=== PATIENT | male | born 1965 | race Caucasian/White ===

== ENCOUNTER 2016-05-26 11:25 | Observation (INO) ==
--- NOTE | 2016-05-26 11:48 | Emergency Department Note ---
Disposition Clinical Impression: URI (upper respiratory infection), Wheezing, Cellulitis of forearm, left, Abscess of muscle, Abscess of forearm, left, Left arm swelling, Elevated C- reactive protein (CRP) Disposition: Admitted As Inpatient Referrals: NO,PCP [Primary Care Provider] - Forms: ED Satisfaction Letter General Adult HPI - General Chief complaint: ED Extremity Injury, Upper Stated complaint: abscess Time Seen by Provider: 05/26/16 11:33 Source: patient Limitations: no limitations - History of Present Illness HPI Narrative: 50-year-old male reports emergency department with concerns for left arm swelling. He reports redness and pain. There is no history of trauma. The patient denies any recent laceration or injury. The patient has had no chest pain or coughing up blood. He has had a cough and general describes some wheezing. He is a nonsmoker and has no history of asthma. There is been no chest pain. No leg swelling or pain or syncope. He has no personal history of CAD, CHF, DVT, PE or cancer. The patient has had no sore throat or ear pain or runny nose. He reports he has had bronchitis in the past. No abdominal pain vomiting or diarrhea. No coldness blueness numbness or weakness of the arms or legs. Patient is not known to be diabetic. No other complaints or concerns. Pain Scale: 9 - Related Data Previous Rx's Medication Instructions Recorded Cetirizine HCl [Zyrtec] 10 mg PO DAILY #10 tablet 02/14/15 GuaiFENesin/Codeine [Robitussin 10 ml PO Q6HR PRN #120 liquid 02/14/15 w/Codeine] PredniSONE [Prednisone] 60 mg PO DAILY #14 tablet 02/14/15 Albuterol Neb [Proventil Neb] 2.5 mg IH QID PRN #30 vial.neb 10/15/15 Azithromycin [Zithromax] 250 mg PO DAILY #6 tablet 10/15/15 Albuterol Neb [AccuNeb] 0.63 mg IH ONCE PRN #200 mls 10/24/15 Albuterol Sulfate [Albuterol 2 puff IH Q4HR PRN #1 hfa.aer.ad 10/24/15 Inhaler] Azithromycin [Azithromycin 6-Tab 250 mg PO PER PKG DI #6 tab 10/24/15 Pack] PredniSONE 60 mg PO DAILY #3 tablet 10/24/15 Allergies Allergy/AdvReac Type Severity Reaction Status Date / Time No Known Allergies Allergy Verified 11/01/14 08:55 All systems ED: reviewed and negative except as stated. Past Medical History - Past Medical History Medical history: Reports: no medical history Surgical history: Reports: orthopedic, other Psychiatric history: Reports: no psych history - Social History Smoking Status: Never smoker Smokeless Tobacco Status: No Alcohol use: Reports: none Drug use: Reports: none Physical Exam - General Limitations: no limitations General appearance: alert, in no apparent distress - Head Head exam: atraumatic, normocephalic, normal inspection - Eye Eye exam: Present: normal appearance, PERRL, EOMI - ENT ENT exam: normal exam, normal oropharynx, mucous membranes moist - Neck Neck exam: Present: normal inspection, full ROM, trachea midline - Chest Chest inspection: Present: symmetric chest wall rise. Absent: tenderness - Respiratory Respiratory exam: Present: wheezes, prolonged expiratory phase. Absent: respiratory distress, stridor, accessory muscle use - Cardiovascular Cardiovascular exam: Present: regular rate, normal rhythm, normal heart sounds - Abdominal Exam Abdominal exam: Present: soft, Non-Tender, normal bowel sounds. Absent: tenderness, distention, guarding, rebound, rigidity, pulsatile mass - Expanded Upper Extremity Exam Shoulder exam: Present: full ROM. Absent: tenderness Arm exam: Present: full ROM, tenderness, swelling, erythema. Absent: abrasion, laceration Elbow exam: Present: tenderness, swelling, erythema. Absent: ecchymosis, crepitus, dislocation Forearm/Wrist exam: Present: full ROM, tenderness, swelling. Absent: deformity , crepitus, dislocation Hand exam: Present: full ROM, tenderness, swelling, other (The left upper extremity shows significant swelling from the elbow down with redness and areas of potential abscess in the forearm as well. The left upper extremity is about twice a size of the right. Radial pulses palpable muscle strength and sensation are intact. The right upper extremity shows no evidence of cynthia abnormality. Full range of motion warm and well-perfused with good muscle strength and sensation. The patient does have old wrist cut flower on his left. No evidence of active laceration or puncture.). Absent: laceration, skin avulsion, ecchymosis, deformity, crepitus Vascular exam: Normal: capillary refill, radial pulse - Expanded Lower Extremity Exam Hip/Pelvis exam: Present: full ROM. Absent: tenderness Upper leg exam: Present: full ROM. Absent: tenderness Knee exam: Present: full ROM. Absent: tenderness Lower leg exam: Present: full ROM. Absent: tenderness, Homans' sign Ankle exam: Present: full ROM. Absent: tenderness Foot/toe exam: Present: full ROM. Absent: tenderness Neurovascular/Tendon exam: Present: normal capillary refill. Absent: pulse deficit, motor deficit, sensory deficit, tendon deficit, extremity cold to touch , pallor - Back Exam Back exam: Present: normal inspection, full ROM. Absent: tenderness, CVA tenderness (R), CVA tenderness (L), vertebral tenderness - Neurological Exam Neurological exam: Present: alert, oriented X3, CN II-XII intact. Absent: motor sensory deficit - Psychiatric Psychiatric exam: Present: normal affect, normal mood - Skin Skin exam: Present: warm, dry, intact, normal color, erythema (Left upper extremity.). Absent: rash, cyanosis, diaphoresis, pallor, mottled Course Vital Signs Temperature 97.2 F L 05/26/16 11:27 Pulse Rate 62 05/26/16 11:27 Respiratory Rate 18 05/26/16 11:27 Blood Pressure 142/73 05/26/16 11:27 O2 Sat by Pulse Oximetry 98 05/26/16 11:27 Temperature 97.2 F L 05/26/16 11:27 Pulse Rate 63 05/26/16 14:28 Respiratory Rate 18 05/26/16 14:28 Blood Pressure 136/74 05/26/16 14:28 O2 Sat by Pulse Oximetry 97 05/26/16 14:28 Oxygen Delivery Oxygen Delivery Room Air Medical Decision Making - [facility] Narrative Medical decision making narrative: The patient has a significant abscess left forearm which appears to be in the musculature, his CRP is notably elevated and his left arm is markedly edematous. He was given IV fluids and antibiotics in the ED. Pain control measures were also initiated. Based on the patient's significant edema and cellulitic change as well as abscess which appears to be involving the musculature, I thought it be appropriate to admit the patient to the hospital for further care. I discussed the case with the orthopedist Dr. Machado who will act as tanning consultant. I consulted with the hospitalist who has accepted patient to their care. - Lab Data Lab results reviewed: Yes I reviewed the patient's lab results. Result diagrams: 05/26/16 13:19 05/26/16 13:19 Lab Results 05/26/16 05/26/16 05/26/16 Range/Units 13:19 13:19 13:46 WBC 9.4 (4.3-11.1) K/mcL RBC 4.89 (4.19-5.50) M/mcL Hgb 15.1 (12.9-16.9) g/dL Hct 45.3 (37.5-50.1) % MCV 92.6 (83.0-100.0) fL MCH 30.9 (28.0-33.3) pg MCHC 33.3 (31.6-35.5) g/dL RDW 12.8 (11.5-14.5) % Plt Count 179 (140-400) K/mcL MPV 10.2 (9.4-12.4) fL Immature Gran % 0.4 (0-4) % Seg Neutrophils % 72.0 % Lymphocytes % 14.4 % Monocytes % 8.3 % Eosinophils % 4.2 % Basophils % 0.7 % Neutrophils # 6.8 (1.6-8.9) K/mcL Lymphocytes # 1.4 (0.6-4.6) K/mcL Monocytes # 0.8 (0.0-1.3) K/mcL Eosinophils # 0.4 (0.0-0.6) K/mcL Basophils # 0.1 (0.0-0.2) K/mcL Sodium 135 L (136-145) mEq/L Potassium 4.1 (3.5-4.5) mEq/L Chloride 103 (98-109) mEq/L Carbon Dioxide 22 (19-29) mEq/L BUN 11 (8-26) mg/dL Creatinine 0.77 (0.72-1.25) mg/dL Est GFR ( Amer) > 60 (> 60) Est GFR (Non-Af Amer) > 60 (> 60) BUN/Creatinine Ratio 14 (6-26) Glucose 98 (70-99) mg/dL Calculated Osmolality 279 L (280-300) Lactic Acid 0.6 (0.5-2.2) mmol/L Calcium 8.9 (8.6-10.8) mg/dL C-Reactive Protein 118 H (Less than 5) mg/L - Radiology Data Radiology results reviewed: Yes I reviewed the patient's radiology results.
[2016-05-26] MEDS ORDERED: 0.9 % Sodium Chloride 1,000 ML IVC ONE (11:58)
[2016-05-26] MEDS ORDERED: Vancomycin 1,000 MG in D5% in Water 250 ML IVPB ONE (11:59)
[2016-05-26] MEDS ORDERED: *HR* HYDROmorphone (PF) 1 MG/ML SYRINGE IVP ONE (13:25)
[2016-05-26] MEDS ORDERED: Ondansetron 4 MG/2 ML VIAL IVP ONE (13:25)
[2016-05-26 13:27] LABS: Basophils # 0.1 K/mcL (0.0-0.2); Basophils % 0.7 %; Eosinophils # 0.4 K/mcL (0.0-0.6); Eosinophils % 4.2 %; Hematocrit 45.3 % (37.5-50.1); Hemoglobin 15.1 g/dL (12.9-16.9); Immature Granulocytes % 0.4 % (0-4); Lymphocytes # 1.4 K/mcL (0.6-4.6); Lymphocytes % 14.4 %; Mean Corpuscular HGB Conc 33.3 g/dL (31.6-35.5); Mean Corpuscular Hemoglobin 30.9 pg (28.0-33.3); Mean Corpuscular Volume 92.6 fL (83.0-100.0); Mean Platelet Volume 10.2 fL (9.4-12.4); Monocytes # 0.8 K/mcL (0.0-1.3); Monocytes % 8.3 %; Neutrophils # 6.8 K/mcL (1.6-8.9); Platelet Count 179 K/mcL (140-400); Red Blood Count 4.89 M/mcL (4.19-5.50); Red Cell Distribution Width 12.8 % (11.5-14.5)
[2016-05-26 13:39] LABS: BUN/Creatinine Ratio 14 (6-26); Blood Urea Nitrogen 11 mg/dL (8-26); Calcium 8.9 mg/dL (8.6-10.8); Carbon Dioxide 22 mEq/L (19-29); Chloride 103 mEq/L (98-109); Glucose 98 mg/dL (70-99); Osmolality,Calculated 279 (280-300); Potassium 4.1 mEq/L (3.5-4.5); Sodium 135 mEq/L (136-145); eGFR For African Americans > 60 (> 60); eGFR For Non-African Americans > 60 (> 60)
[2016-05-26 14:02] LABS: C-Reactive Protein 118 mg/L (Less than 5)
[2016-05-26] MEDS ORDERED: Acetaminophen 325 MG TABLET PO PRN (16:44)
[2016-05-26] MEDS ORDERED: Naloxone 0.4 MG/ML INJ IVP PRN (16:44)
[2016-05-26] MEDS ORDERED: Ondansetron 4 MG/2 ML VIAL IVP PRN (16:44)
[2016-05-26] MEDS ORDERED: Ampicillin/Sulbactam 3,000 MG in 0.9 % Sodium Chloride Mini Bag 100 ML IVPB ONE (17:14)
--- NOTE | 2016-05-26 17:31 | Internal Med History&Physical ---
<YolandaFran T - Last Filed: 05/26/16 18:07> Date of Encounter: 05/26/16 Internal Medicine - H&P: HPI History of present illness: Mr. Granados is a 50 year old male Internal Medicine - H&P: Meds Calcium Carbonate [Tums] 1,000 mg PO Q4HR PRN 05/26/16 [History] DiphenhydraMINE [Benadryl] 25 mg PO HS PRN 05/26/16 [History] Allergies No Known Allergies Allergy (Verified 11/01/14 08:55) All Systems PM: A 10-system review of systems was performed and is negative for pertinent findings except as documented above in the HPI. - Constitutional Vitals: Temp Pulse Resp BP Pulse Ox 98.9 F 69 18 143/85 93 05/26/16 16:14 05/26/16 16:14 05/26/16 16:14 05/26/16 16:14 05/26/16 16:14 Internal Med - H&P Results - Labs CBC & Chem 7: 05/26/16 13:19 05/26/16 13:19 - Attending Attestation I have reviewed this patient's chart and discussed plan of care with LUIS France, and her documentation reflects the plan of care with the following addendum 50 Y/O M with no PMH presented with LUE cellulitis with abscess, no hx of IVD use, patient is not septic, no leukocytosis, L Arm CT scan with deep abscess, orthopedics have been consulted, patient has no co-morbidities, deescalate antibiotics to Unasyn for now, follow cultures when tissue is obtained/abscess is drained by orthopedics, obtain LUE Doppler to r/o DVT, duonebs prn for bronchitis, CXR is unremarkable, Hyponatremia is mild, patient denied alcohol intake, will monitor for now, rest of details as in LUIS France documentation <Altagracia France L - Last Filed: 05/26/16 20:04> Date of Encounter: 05/26/16 Time of Encounter: 16:00 Assessment and Plan (1) Abscess of muscle Current visit: Yes Status: Acute 1 CT of left forearm Abscess in the posterior mid left forearm centered at the level of the superficial fascial plane of underlying musculature with extension into the underlying musculature- orthopedics consulted- for surgical management 2 we will start on Unasyn-adjusted sensitivity once wound cultures are obtained / resulted 3. [place] and Dilaudid as needed for pain (2) Cellulitis of forearm, left Current visit: Yes Status: Acute 1 patient presented with redness swelling warmth to left forearm CT revealed abscess in musculature. We will continue with Unasyn (3) URI (upper respiratory infection) Current visit: Yes Status: Acute 1 patient has been experiencing cough with sputum production as well as wheezing. No leukocytosis is afebrile. bronchial dilators as needed obtain sputum culture Qualifiers: URI type: unspecified URI Qualified Code(s): J06.9 - Acute upper respiratory infection, unspecified (4) DVT prophylaxis Current visit: Yes Status: Acute 1 [facility] Internal Medicine - H&P: HPI Chief complaint: L arm pain Admitted From: Emergency Dept Plans for Post Hospital Care: Home History of present illness: Mr. Granados is a 50 year old male with no past medical history. On Tuesday patient noted his left forearm had a reddened area which was slightly raised. The area was painful to touch. On Tuesday his forearm was swollen red and painful. The swelling and redness continued until today patient noted that the whole arm swelling forearm very red and painful to touch as well as very warm. He denies any fevers chills nausea vomiting he denies injury to his arm. He denies any open sores or lesions he denies any IV drug use. Patient has also been experiencing a productive cough with yellow sputum and wheezing. Has a history of bronchitis denies any smoking or history of smoking cigarettes has a history of smoking marijuana in the past. He presented to the ER with above complaints. According to ER records CT of arm did not reveal any evidence of osteomyelitis however did reveal an abscess in the posterior forearm central at the level of the superficial fasical plane of underlying musculature. Chest x- ray was negative lab work was unremarkable except for some hyponatremia sodium 135. Patient has been admitted for further workup and evaluation. Presently patient does not appear to be any respiratory distress she denies any chest pain. Left forearm is warm to touch swollen and red good capillary refill pulses palpable. I reviewed this case with Dr Guerrero who agrees with plan Past Med Surg Social Fam HX - Past Medical History Medical history: no medical history Psychiatric history: no psych history - Past Surgical History Surgical History: orthopedic, other - Social History Smoking Status: Never smoker Smokeless Tobacco Status: No Alcohol use: none Drug use: none - Family History Mother Hx Family Endocrine Disorder: Yes (DM) All Systems PM: A 10-system review of systems was performed and is negative for pertinent findings except as documented above in the HPI. - Constitutional Constitutional: no chills, no fever(s), no night sweats - EENT Eyes: no change in vision, no discharge, no pain, no photophobia - Cardiovascular Cardiovascular ROS IM: as per HPI - Respiratory Respiratory: cough, wheezing - Gastrointestinal Gastrointestinal: no abdominal pain, no diarrhea, no hematemesis, no hematochezia, no melena, no nausea, no vomiting - Musculoskeletal Musculoskeletal ROS IM: no numbness, no tingling - Integumentary Integumentary IM: erythema Additional comments: swelling warmth - Neurological Neurological ROS: no confusion, no convulsions, no focal weakness, no numbness, no tingling, no tremor(s) - Hematologic/Lymphatic Hematologic/Lymphatic: no easy bruising - Constitutional Vitals: Temp Pulse Resp BP Pulse Ox 98.9 F 69 18 143/85 93 05/26/16 16:14 05/26/16 16:14 05/26/16 16:14 05/26/16 16:14 05/26/16 16:14 General appearance: Present: A&O X 3 - Head Head exam: Present: atraumatic, normocephalic - Eye Eye exam: Present: PERRL, conjuntiva pink, sclera anicteric Pupils: Present: PERRL - Respiratory Respiratory exam: Present: wheezes. Absent: accessory muscle use, rales, rhonchi - Cardiovascular Cardiovascular exam: Present: RRR, +S1, +S2. Absent: diastolic murmur, gallop, rubs, systolic murmur - GI/Abdominal GI/Abdominal exam: Present: normal bowel sounds, soft, no peritoneal signs. Absent: distended, tenderness - Extremities Exam Extremities exam: Present: warm, radial pulses palpable and symetrical. Absent : calf tenderness, cyanotic, pedal edema - Expanded Upper Extremities Exam Forearm wrist exam: Present: erythema, swelling, tenderness Vascular exam: Present: normal capillary refill, radial pulse left - Neurological Exam Neurological exam: Present: CN II-XII intact, oriented X3, no focal deficits. Absent: pronater drift, facial droop, speech deficit - Skin Skin exam: Present: dry, intact Internal Med - H&P Results - Labs CBC & Chem 7: 05/26/16 13:19 05/26/16 13:19 - Diagnostic Studies Other Images Additional comments: Chest X-Ray 05/26/16 11:57 IMPRESSION: No acute abnormality. D/ / Greg Montes De Oca MD / Greg Montes De Oca MD Interpreting Provider: Greg Montes De Oca MD Forearm CT 05/26/16 11:57 IMPRESSION: Abscess in the posterior mid left forearm centered at the level of the superficial fascial plane of underlying musculature with extension into the underlying musculature and into the overlying subcutaneous fat measuring 3.8 x 3.2 x 1.8 cm. No radiopaque foreign bodies or soft tissue gas. Diffuse cellulitis predominately posteriorly. No acute bony abnormalities. No CT evidence for osteomyelitis. Degenerative changes to the elbow. No joint effusion, but there are loose bodies both anteriorly and posteriorly. D/ / 05/26/2016 13:29:53 Eh Barrow MD / hemalatha Interpreting Provider: Eh Barrow MD
[2016-05-26] MEDS: *HR* HYDROmorphone (PF) 1 MG/ML SYRINGE IVP PRN (17:45)
[2016-05-26] MEDS ORDERED: Ampicillin/Sulbactam 1,500 MG in 0.9 % Sodium Chloride Mini Bag 100 ML IVPB SCH (18:00)
--- NOTE | 2016-05-26 18:09 | Orthopedic Consult Note ---
Date of Encounter: 05/27/16 Time of Encounter: 17:45 Assessment and Plan (1) Abscess of forearm, left Current Visit: Yes Status: Acute CT confirmed abscess of left posterior mid forearm with diffuse cellulitis. Bedside I&D performed. I discussed the procedure as well as r/b/a with the patient and consent was signed. The posterior forearm was prepped and draped in sterile fashion. Area cleaned with hibiclense. A total of 10cc 1% lidocaine was injected in and around the abscess going both superficial and deep in this area. A 2cm incision was made with #11 blade over the most fluctuant area and copious purulent bloody drainage was expressed along with a foul odor. The abscess cavity was probed with hemostats to break up any loculations. Cavity was irrigated with saline and then iodoform packing was placed inside. Incision left open to drain. Dry gauze and kerlix dressing applied. Patient tolerated procedure well with no complications. Wound cx sent. Dressings applied. Will remove packing tomorrow. Ice and elevate. Continue ROM of hand and elbow. IV abx and pain control per hospitalist History of Present Illness Chief complaint: left arm pain HPI: Mr. Granados is a 50 year old male who presented to the ER today for left forearm pain. States it started to hurt on 05/21/16 then the redness and swelling started on 05/22/16. The redness and swelling continued to worsen over the weekend. Pain localized to forearm and worse with motion or palpation. Denies any known injuries, chronic upper extremity issues, IVDA. Denies chest pain, SOB, fever. Past Med Surg Social Fam HX - Past Medical History Medical history: no medical history Psychiatric history: no psych history - Past Surgical History Surgical History: orthopedic, other - Social History Smoking Status: Never smoker Smokeless Tobacco Status: No Alcohol use: none Drug use: none - Family History Mother Hx Family Endocrine Disorder: Yes (DM) Medications and Allergies Calcium Carbonate [Tums] 1,000 mg PO Q4HR PRN 05/26/16 [History] DiphenhydraMINE [Benadryl] 25 mg PO HS PRN 05/26/16 [History] Allergies No Known Allergies Allergy (Verified 11/01/14 08:55) All Systems Reviewed: A 10-system review of systems was performed and is negative for pertinent findings except as documented above in the HPI. - Constitutional Constitutional: as per HPI - Cardiovascular Cardiovascular: as per HPI - Respiratory Respiratory: as per HPI - Musculoskeletal Musculoskeletal: as per HPI Physical Exam - Constitutional Vitals: Temp Pulse Resp BP Pulse Ox 98.9 F 69 18 143/85 93 05/26/16 16:14 05/26/16 16:14 05/26/16 16:14 05/26/16 16:14 05/26/16 16:14 - Elbow left Location of pain elbow: posterior Pain modifiers elbow: with motion Tenderness with palpation: other (erythema and swelling noted to posterior midforearm with fluctant area roughly 4cm round. No open wounds or lesions.Significant tenderness to palpation. full ROM of elbow and wrist/hand. NV intact. ) Results - Labs Result Diagrams: 05/27/16 03:49 05/27/16 03:49 Labs: Abnormal lab results Sodium 135 mEq/L (136-145) L 05/26/16 13:19 Calculated Osmolality 279 (280-300) L 05/26/16 13:19 C-Reactive Protein 118 mg/L (Less than 5) H 05/26/16 13:19 All other labs normal. - Diagnostic results Elbow CT: report reviewed (forearm CT), image reviewed Consult Discharge Plan - Plan Referrals: NO,PCP [Primary Care Provider] - - Attending Attestation Case and plan of care discussed with supervising physician who was available for all aspects of care.
[2016-05-26] MEDS: *HR* HYDROcodone/Acet 5/325 mg TABLET PO PRN (21:20)
[2016-05-27] MEDS: *HR* HYDROmorphone (PF) 1 MG/ML SYRINGE IVP PRN ×2 (00:08→18:16)
[2016-05-27] MEDS: Ampicillin/Sulbactam 1,500 MG in 0.9 % Sodium Chloride Mini Bag 100 ML IVPB SCH ×4 (00:08→18:06)
[2016-05-27 05:06] LABS: Basophils # 0.1 K/mcL (0.0-0.2); Basophils % 0.6 %; Eosinophils # 0.3 K/mcL (0.0-0.6); Eosinophils % 3.4 %; Hematocrit 43.6 % (37.5-50.1); Hemoglobin 14.8 g/dL (12.9-16.9); Immature Granulocytes % 0.3 % (0-4); Lymphocytes # 1.5 K/mcL (0.6-4.6); Lymphocytes % 15.8 %; Mean Corpuscular HGB Conc 33.9 g/dL (31.6-35.5); Mean Corpuscular Hemoglobin 30.2 pg (28.0-33.3); Mean Platelet Volume 10.2 fL (9.4-12.4); Monocytes # 0.8 K/mcL (0.0-1.3); Monocytes % 8.5 %; Neutrophils # 6.6 K/mcL (1.6-8.9); Platelet Count 217 K/mcL (140-400); Red Cell Distribution Width 12.6 % (11.5-14.5); Segmented Neutrophils % 71.4 %
[2016-05-27 05:19] LABS: BUN/Creatinine Ratio 9 (6-26); Blood Urea Nitrogen 7 mg/dL (8-26); Calcium 8.9 mg/dL (8.6-10.8); Carbon Dioxide 24 mEq/L (19-29); Chloride 105 mEq/L (98-109); Glucose 93 mg/dL (70-99); Osmolality,Calculated 288 (280-300); Potassium 4.1 mEq/L (3.5-4.5); Sodium 140 mEq/L (136-145); eGFR For African Americans > 60 (> 60); eGFR For Non-African Americans > 60 (> 60)
[2016-05-27] MEDS: *HR* Enoxaparin 40 MG/0.4 ML SYRINGE SQ SCH (06:48)
[2016-05-27] MEDS: *HR* HYDROcodone/Acet 5/325 mg TABLET PO PRN ×3 (06:56→15:28)
[2016-05-27] MEDS ORDERED: Ipratropium/Albuterol Neb 3 ML ONE (09:31)
[2016-05-27] MEDS: Ipratropium/Albuterol Neb 3 ML IH PRN ×2 (09:36→22:19)
--- NOTE | 2016-05-27 09:52 | Internal Med Progress Note ---
Date of Encounter: 05/27/16 Time of Encounter: 09:49 - Assessment and plan (1) Abscess of forearm, left Current Visit: Yes Status: Acute Assessment and plan: Continue with Unasyn. Follow up culture and sensitivities for wound drainage (2) DVT prophylaxis Current Visit: Yes Status: Acute Assessment and plan: Lovenox for DVT prophylaxis (3) Wheezing Current Visit: Yes Status: Acute Assessment and plan: Add DuoNeb. He reports history of bronchitis. He has never smoked. Will refer to pulmonary outpatient for PFTs. He has diffuse bilateral expiratory wheezes he denies a history of asthma. - Subjective Interval history: Patient presented to the hospital with left upper extremity swelling and pain that started 1 week ago and progressively got worse. Currently reports pain 8/ time, total in the left forearm, no associated weakness or numbness. Pain improves with IV morphine. He also reports wheezing and mild shortness of breath, no chest pain no nausea or vomiting or headache. - Constitutional Vitals: Temp Pulse Resp BP Pulse Ox 98.6 F 62 16 147/66 98 05/27/16 06:50 05/27/16 06:50 05/27/16 09:37 05/27/16 06:50 05/27/16 09:37 General appearance: Present: A&O X 3 - Eye Eye exam: Present: PERRL, conjuntiva pink, sclera anicteric Pupils: Present: PERRL - Respiratory Respiratory exam: Present: wheezes (Bilateral expiratory wheezes). Absent: accessory muscle use, rales, rhonchi - Cardiovascular Cardiovascular exam: Present: RRR, +S1, +S2. Absent: diastolic murmur, gallop, rubs, systolic murmur - GI/Abdominal GI/Abdominal exam: Present: normal bowel sounds, soft, no peritoneal signs. Absent: distended, tenderness - Extremities Exam Extremities exam: Present: warm, radial pulses palpable and symetrical. Absent : calf tenderness, cyanotic, pedal edema Additional comments: Left upper extremity forearm is nonpitting edema and wound covered with surgical dressing. Good palpable pulses both ulnar and radial arteries. Good capillary refill distally. - Skin Skin exam: Present: dry, intact Internal Medicine: Result - Labs CBC & Chem 7: 05/27/16 03:49 05/27/16 03:49 Labs: Short CBC 05/27/16 Range/Units 03:49 WBC 9.3 (4.3-11.1) K/mcL Hgb 14.8 (12.9-16.9) g/dL Hct 43.6 (37.5-50.1) % Plt Count 217 (140-400) K/mcL Neutrophils # 6.6 (1.6-8.9) K/mcL BMP 05/27/16 03:49 Sodium 140 Potassium 4.1 Chloride 105 Carbon Dioxide 24 BUN 7 L Creatinine 0.74 Glucose 93 Calcium 8.9 Consult Discharge Plan - Plan Referrals: NO,PCP [Primary Care Provider] -
--- NOTE | 2016-05-27 12:29 | Venous Imaging Report ---
UE Venous Duplex Patient Name:Francisco Javier Granados Order Number:[id number] Procedure Date:05/26/2016 Date:1965Age:50 yrs Gender:Male Location:[facility] Room #: 3NE31 Vocal Music Teacher:Kim Carey Referring MD:Altagracia France MUSHROOM LABORER store director:None Reading MD:Gael Onofre MD , FACS Primary Indications:r./o DVT Secondary Indications: Impressions: Left upper extremity: normal superficial and deep exam. Right upper extremity: normal contralateral exam. Findings Prior Study: No prior study available for comparison. Upper Extremity Venous Duplex Side Vein Compress Spontaneous Flow Augment Left Jugular Normal Yes Phasic Yes Left Subclavian Normal Yes Phasic Yes Left Axillary Normal Yes Phasic Yes Left Brachial Normal Yes Phasic Yes Left Cephalic Normal Yes Phasic Yes Left Basilic Normal Yes Phasic Yes Left Radial Normal Yes Phasic Yes Left Ulnar Normal Yes Phasic Yes Right Subclavian Normal Yes Phasic Yes Updated by Gael Onofre MD, FACS on 05/27/2016 12:23:26 PM Gael Onofre MD electronically signed on 05/27/2016 12:23:52 PM with status of Final
--- NOTE | 2016-05-27 13:39 | Orthopedics Progress Note ---
Date of Encounter: 05/27/16 Time of Encounter: 12:30 - Assessment and Plan (1) Abscess of forearm, left Current Visit: Yes Status: Acute Packing removed today and new dressings applied. Begin wound care washing incision with soap/water TID and reapply dry gauze dressings each time. Patient will need to continue this at home upon discharge until completely healed. Wound cx pending. Ice and elevate. Continue ROM of hand and elbow. IV abx and pain control per hospitalist. Plan for probable DC tomorrow after final cx results for PO abx home. Will follow up in [facility] office with Miladys Aguero PA-C in 1 week. Subjective Principal diagnosis: left forearm abscess Interval history: Patient feeling better today but states still has moderate pain in arm. No events overnight. States nurse did have to change dressings since yesterday due to amount of drainage. Denies any numbness in arm. Has been working on ROM of hand and elbow. Objective Vital signs: Vital Signs Temp Pulse Resp BP Pulse Ox 05/27/16 11:15 97.8 F 60 16 132/76 96 05/27/16 09:37 16 98 05/27/16 06:57 95 05/27/16 06:50 98.6 F 62 18 147/66 95 05/27/16 04:39 98.9 F 50 17 153/72 96 05/27/16 00:05 99.0 F 74 16 130/76 92 05/26/16 19:48 99.0 F 68 15 114/62 93 05/26/16 16:14 98.9 F 69 18 143/85 93 05/26/16 15:43 18 134/74 Intake and Output 05/26/16 05/27/16 05/27/16 23:59 07:59 15:59 Intake Total 1000 / 1000 100 / 100 100 / 100 Balance 1000 / 1000 100 / 100 100 / 100 Intake: IV Fluids 1000 / 1000 100 / 100 100 / 100 0.9 % Sodium Chloride 1, 1000 / 1000 000 ML @ 3750 mls/hr IVC .Q16M ONE Rx#:[id number] Unasyn 1,500 mg In 0.9 % 100 / 100 100 / 100 Sodium Chloride (Mini-Bag +) 100 ML @ 200 mls/hr IVPB Q6HR DENY Rx#: [id number] Other: # Voids 1 Incision: swollen (left forearm still has moderate erythema but swelling has decreased since yesterday. Mild active serous drainage on exam. Moderate tenderness to palpation. Full ROM of elbow and hand. NV intact.) - Labs CBC & BMP: 05/27/16 03:49 05/27/16 03:49 Labs: Abnormal lab results BUN 7 mg/dL (8-26) L 05/27/16 03:49 C-Reactive Protein 118 mg/L (Less than 5) H 05/26/16 13:19 Consult Discharge Plan - Plan Referrals: NO,PCP [Primary Care Provider] -
[2016-05-28] MEDS: Ampicillin/Sulbactam 1,500 MG in 0.9 % Sodium Chloride Mini Bag 100 ML IVPB SCH ×3 (01:08→10:53)
[2016-05-28] MEDS: *HR* HYDROcodone/Acet 5/325 mg TABLET PO PRN ×2 (01:10→06:19)
[2016-05-28 05:20] LABS: Basophils # 0.1 K/mcL (0.0-0.2); Basophils % 0.9 %; Eosinophils # 0.4 K/mcL (0.0-0.6); Eosinophils % 6.8 %; Hematocrit 42.5 % (37.5-50.1); Hemoglobin 14.7 g/dL (12.9-16.9); Immature Granulocytes % 0.3 % (0-4); Lymphocytes # 1.6 K/mcL (0.6-4.6); Lymphocytes % 25.6 %; Mean Corpuscular HGB Conc 34.6 g/dL (31.6-35.5); Mean Corpuscular Hemoglobin 30.6 pg (28.0-33.3); Mean Corpuscular Volume 88.5 fL (83.0-100.0); Mean Platelet Volume 10.4 fL (9.4-12.4); Monocytes # 0.5 K/mcL (0.0-1.3); Monocytes % 7.7 %; Neutrophils # 3.7 K/mcL (1.6-8.9); Platelet Count 223 K/mcL (140-400); Red Cell Distribution Width 12.7 % (11.5-14.5); Segmented Neutrophils % 58.7 %
[2016-05-28 05:48] LABS: BUN/Creatinine Ratio 9 (6-26); Blood Urea Nitrogen 7 mg/dL (8-26); Calcium 8.9 mg/dL (8.6-10.8); Carbon Dioxide 23 mEq/L (19-29); Chloride 106 mEq/L (98-109); Glucose 94 mg/dL (70-99); Osmolality,Calculated 290 (280-300); Potassium 3.7 mEq/L (3.5-4.5); Sodium 141 mEq/L (136-145); eGFR For African Americans > 60 (> 60); eGFR For Non-African Americans > 60 (> 60)
[2016-05-28] MEDS: *HR* Enoxaparin 40 MG/0.4 ML SYRINGE SQ SCH (06:07)
[2016-05-28 07:13] VITALS: BP 146/79
[2016-05-28] MEDS: Ipratropium/Albuterol Neb 3 ML IH PRN (08:44)
--- NOTE | 2016-05-28 09:32 | Orthopedics Progress Note ---
Date of Encounter: 05/28/16 Time of Encounter: 09:15 - Assessment and Plan (1) Abscess of forearm, left Current Visit: Yes Status: Acute Continue wound care washing incision with soap/water TID and reapply dry gauze dressings each time at home until completely healed. Wound cx states no growth at this time. Anaerobic cx pending Ice and elevate. Continue ROM of hand and elbow. Will need to be DC home on PO abx and pain control per hospitalist. Will follow up in [facility] office with Miladys Aguero PA-C on 06/02/16 at 10:45am. Subjective Principal diagnosis: left forearm abscess Interval history: Patient feeling better today with decreased pain. No events overnight. Denies any numbness in arm. Has been working on ROM of hand and elbow and denies stiffness in arm. Objective Vital signs: Vital Signs Temp Pulse Resp BP Pulse Ox 05/28/16 08:45 18 94 05/28/16 07:12 98.2 F 65 20 146/79 94 05/28/16 04:29 98.1 F 53 17 162/75 98 05/28/16 00:37 98.1 F 62 16 153/86 95 05/27/16 22:20 20 98 05/27/16 21:26 98.4 F 52 16 139/76 95 05/27/16 18:34 96 05/27/16 15:23 97.8 F 62 16 132/71 96 05/27/16 11:15 97.8 F 60 16 132/76 96 05/27/16 09:37 16 98 Intake and Output 05/27/16 05/28/16 05/28/16 23:59 07:59 15:59 Intake Total 100 / 100 200 / 200 Balance 100 / 100 200 / 200 Intake: IV Fluids 100 / 100 200 / 200 Unasyn 1,500 mg In 0.9 % 100 / 100 200 / 200 Sodium Chloride (Mini-Bag +) 100 ML @ 200 mls/hr IVPB Q6HR DENY Rx#: [id number] Other: Meal Breakfast Percent of Meal Consumed 100% # Voids 1 Incision: healing (Incision still open with minimal serous drainage. Mild swelling, minimal erythema. Mild tenderness to palpation. Full ROM of elbow and hand/wrist. NV intact.) - Labs CBC & BMP: 05/28/16 04:45 05/28/16 04:45 Labs: Abnormal lab results BUN 7 mg/dL (8-26) L 05/28/16 04:45 C-Reactive Protein 118 mg/L (Less than 5) H 05/26/16 13:19 Consult Discharge Plan - Plan Referrals: Miladys Aguero, PAC [Physician Infant Childcare Provider] - 06/02/16 10:45 am NO,PCP [Primary Care Provider] -
--- NOTE | 2016-05-28 10:49 | Discharge Summary ---
Date of Encounter: 05/28/16 - Discharge Diagnosis (1) Abscess of forearm, left Status: Acute (2) DVT prophylaxis Status: Acute (3) Wheezing Status: Acute - Discharge Medications Home Medications: Calcium Carbonate [Tums] 1,000 mg PO Q4HR PRN 05/26/16 [History] DiphenhydraMINE [Benadryl] 25 mg PO HS PRN 05/26/16 [History] Allergies/Adverse Reactions: Allergies No Known Allergies Allergy (Verified 11/01/14 08:55) Procedures/tests Complete & Pending: Procedures Performed prior 72 hours Category Date Time Status Venous Doppler [EV venous imaging UE LT] Routine Y 05/26/16 17:23 Completed Date of admission: 05/26/16 15:10 Primary care physician: PCP NO - Discharge Instructions Follow Up With: Miladys Aguero, PAC [Physician Video Software Engineer] - 06/02/16 10:45 am ELIER,PCP [Primary Care Provider] - Additional Instructions: Continue wound care washing incision with soap/water TID and reapply dry gauze dressings each time at home until completely healed. Ice and elevate. Continue ROM of hand and elbow. Hospital course: Mr. Granados is a 50 year old male - Time Spent with Patient Total time spent providing and/or coordinating discharge services: - Constitutional Vitals: Temp Pulse Resp BP Pulse Ox 98.2 F 65 18 146/79 94 05/28/16 07:12 05/28/16 07:12 05/28/16 08:45 05/28/16 07:12 05/28/16 08:45 General appearance: Present: A&O X 3
--- NOTE | 2016-05-28 10:52 | Discharge Summary ---
Date of Encounter: 05/28/16 Time of Encounter: 10:50 - Discharge Diagnosis (1) Abscess of forearm, left Priority: Primary Status: Acute (2) DVT prophylaxis Priority: Secondary Status: Acute (3) Wheezing Priority: Secondary Status: Acute - Discharge Medications Prescriptions: Albuterol Neb [Proventil Neb] 2.5 mg IH Q4HR PRN #30 vial.neb PRN Reason: wheezing Albuterol Sulfate [Albuterol Inhaler] 1 puff IH Q4HR PRN #1 [email or web address] PRN Reason: wheezing HYDROcodone/Acet 5/325 mg [[place] 5-325 mg] 1 tab PO Q4HR PRN #30 tablet PRN Reason: Moderate Pain (4-6) Home Medications: Calcium Carbonate [Tums] 1,000 mg PO Q4HR PRN 05/26/16 [History] DiphenhydraMINE [Benadryl] 25 mg PO HS PRN 05/26/16 [History] Albuterol Neb [Proventil Neb] 2.5 mg IH Q4HR PRN #30 vial.neb 05/28/16 [Rx] Albuterol Sulfate [Albuterol Inhaler] 1 puff IH Q4HR PRN #1 [email or web address] 05/28/16 [Rx] HYDROcodone/Acet 5/325 mg [[place] 5-325 mg] 1 tab PO Q4HR PRN #30 tablet [Rx] Allergies/Adverse Reactions: Allergies No Known Allergies Allergy (Verified 11/01/14 08:55) Procedures/tests Complete & Pending: Procedures Performed prior 72 hours Category Date Time Status Venous Doppler [EV venous imaging UE LT] Routine Y 05/26/16 17:23 Completed Date of admission: 05/26/16 15:10 Primary care physician: PCP NO - Patient Status Disposition: Home, Self-Care Condition: Good Functional capacity at discharge: independent ambulation Overall status at discharge: patient is back to baseline - Discharge Instructions Follow Up With: Miladys Aguero PAC [Physician Electrical And Instrumentation Manager] - 06/02/16 10:45 am NO,PCP [Primary Care Provider] - Additional Instructions: Continue wound care washing incision with soap/water TID and reapply dry gauze dressings each time at home until completely healed. Ice and elevate. Continue ROM of hand and elbow. - Diet and Activity Activity: increase activity as tolerated Diet: low salt diet Hospital course: Hospital presentation: Mr. Granados is a 50 year old male with no past medical history. On Tuesday patient noted his left forearm had a reddened area which was slightly raised. The area was painful to touch. On Tuesday his forearm was swollen red and painful. The swelling and redness continued until today patient noted that the whole arm swelling forearm very red and painful to touch as well as very warm. He denies any fevers chills nausea vomiting he denies injury to his arm. He denies any open sores or lesions he denies any IV drug use. Patient has also been experiencing a productive cough with yellow sputum and wheezing. Has a history of bronchitis denies any smoking or history of smoking cigarettes has a history of smoking marijuana in the past. He presented to the ER with above complaints. According to ER records CT of arm did not reveal any evidence of osteomyelitis however did reveal an abscess in the posterior forearm central at the level of the superficial fasical plane of underlying musculature. Chest x-ray was negative lab work was unremarkable except for some hyponatremia sodium 135. Patient has been admitted for further workup and evaluation. Hospital course: The patient was admitted to the medical service. He had a bedside incision and debridement of his left forearm abscess by orthopedics. A culture was sent and currently shows no growth, however anaerobic results are still pending and should be followed by PCP. His pain swelling and redness of the area all improved. He received treatment with IV Unasyn. Currently has pain is controlled with oral medications. He has been afebrile. White count is within normal limits. He has been cleared by orthopedics and will be discharged home with wound care instructions. He was instructed to follow up closely with his PCP. He was also noted to have expiratory wheezing and received treatment with inhaled albuterol and Atrovent. - Time Spent with Patient Total time spent providing and/or coordinating discharge services: Less than 30 minutes - Constitutional Vitals: Temp Pulse Resp BP Pulse Ox 98.2 F 65 18 146/79 94 05/28/16 07:12 05/28/16 07:12 05/28/16 08:45 05/28/16 07:12 05/28/16 08:45 General appearance: Present: A&O X 3 - Respiratory Respiratory exam: Present: CTAB, wheezes. Absent: accessory muscle use, rales, rhonchi - Cardiovascular Cardiovascular exam: Present: RRR, +S1, +S2. Absent: diastolic murmur, gallop, rubs, systolic murmur - GI/Abdominal GI/Abdominal exam: Present: normal bowel sounds, soft, no peritoneal signs. Absent: distended, tenderness
== END 2016-05-28 11:58 | disposition home or self-care (01) ==
LOC: 3NENU 11:25 → EMEROO 11:25 → 3NENU 15:48
PROVIDERS: ADMIT Internal Medicine; ATTEND Internal Medicine

== ENCOUNTER 2019-10-31 21:11 | Observation (INO) ==
[2019-10-31] MEDS ORDERED: Isovue-370 500 ML BOTTLE IVP ONE (21:19)
[2019-10-31] MEDS ORDERED: *HR* Promethazine 25 MG/ML VIAL IVP ONE (21:19)
[2019-10-31] MEDS ORDERED: 0.9 % Sodium Chloride 1,000 ML IVC ONE ×2 (21:19→22:50)
[2019-10-31 21:38] LABS: Basophils # 0.1 K/mcL (0.0-0.2); Basophils % 0.4 %; Eosinophils % 0.1 %; Hematocrit 46.6 % (37.5-50.1); Hemoglobin 16.3 g/dL (12.9-16.9); Immature Granulocytes % 0.2 % (0-4); Lymphocytes # 2.3 K/mcL (0.6-4.6); Lymphocytes % 20.4 %; Mean Corpuscular Hemoglobin 30.4 pg (28.0-33.3); Mean Corpuscular Volume 86.8 fL (83.0-100.0); Mean Platelet Volume 10.1 fL (9.4-12.4); Monocytes # 0.6 K/mcL (0.0-1.3); Monocytes % 5.6 %; Neutrophils # 8.3 K/mcL (1.6-8.9); Platelet Count 288 K/mcL (140-400); Red Blood Count 5.37 M/mcL (4.19-5.50); Red Cell Distribution Width 12.8 % (11.5-14.5); Segmented Neutrophils % 73.3 %; White Blood Count 11.3 K/mcL (4.3-11.1)
[2019-10-31 22:00] LABS: Alanine Aminotransferase 35 Units/L (7-52); Albumin 4.5 g/dL (3.5-5.7); Albumin/Globulin Ratio 1.4 (1.1-2.2); Alkaline Phosphatase 67 Units/L (34-104); Aspartate Amino Transferase 31 Units/L (13-39); BUN/Creatinine Ratio 11 (6-26); Bilirubin,Direct 0.1 mg/dL (0.0-0.2); Bilirubin,Indirect 0.8 mg/dL (0.0-1.0); Bilirubin,Total 0.9 mg/dL (0.3-1.0); Blood Urea Nitrogen 10 mg/dL (6-20); Carbon Dioxide 20 mEq/L (23-29); Chloride 101 mEq/L (98-107); Creatine Kinase 226 Units/L (30-223); Globulin 3.3 g/dL (2.4-3.5); Glucose 140 mg/dL (70-105); Lipase 8 Units/L (11-82); Osmolality,Calculated 287 (280-300); Potassium 3.5 mEq/L (3.5-5.1); Sodium 138 mEq/L (136-145); Total Protein 7.8 g/dL (6.4-8.9); Troponin I < 0.03 ng/mL (< 0.04); eGFR For African Americans > 60 (> 60); eGFR For Non-African Americans > 60 (> 60)
[2019-10-31] MEDS ORDERED: Aspirin 325 MG TABLET PO ONE (22:36)
[2019-10-31 22:53] LABS: Bilirubin,Urine Negative (Negative); Blood,Urine Negative (Negative); Clarity,Urine Clear (Clear); Color,Urine Colorless (Yellow); Glucose,Urine (UA) Normal (Normal); Ketones,Urine 10 mg/dL (Negative); Leukocyte Esterase,Urine Negative (Negative); Nitrite,Urine Negative (Negative); PH,Urine 7.5 pH Units (5.0-8.0); Protein,Urine Negative (Neg-Trace); Specific Gravity,Urine 1.025 (1.010-1.025); Urobilinogen,Urine Normal (Normal)
[2019-10-31 23:01] LABS: RBC,Urine 0-3 per hpf (0-3); Squamous Epithelial Cell,Urine Few per hpf (None-Few); WBC,Urine 0-3 per hpf (0-3)
[2019-11-01 00:07] LABS: Amphetamine Screen,Urine Positive ng/mL (Cutoff=1000); Barbiturate Screen,Urine Negative ng/mL (Cutoff=200); Benzodiazepines Screen,Urine Negative ng/mL (Cutoff=200); Cannabinoid Screen,Urine Positive ng/mL (Cutoff = 50); Cocaine Screen,Urine Negative ng/mL (Cutoff= 300); Opiate Screen,Urine Negative ng/mL (Cutoff=300); Phencyclidine Screen,Urine Negative ng/mL (Cutoff=25)
[2019-11-01] MEDS ORDERED: *HR* Promethazine 25 MG/ML VIAL IVP ONE (00:18)
[2019-11-01 00:27] LABS: Adenovirus Not Detected (Not Detect); Bordetella Pertussis Not Detected (Not Detect); Chlamydophila pneumoniae Not Detected (Not Detect); Coronavirus 229E Not Detected (Not Detect); Coronavirus HKU1 Not Detected (Not Detect); Coronavirus NL63 Not Detected (Not Detect); Coronavirus OC43 Not Detected (Not Detect); Human Metapneumovirus Not Detected (Not Detect); Human Rhinovirus/Enterovirus Not Detected (Not Detect); Influenza A Subtype 2009 H1 Not Detected (Not Detect); Influenza B Not Detected (Not Detect); Mycoplasma pneumoniae Not Detected (Not Detect); Parainfluenza Virus 1 Not Detected (Not Detect); Parainfluenza Virus 2 Not Detected (Not Detect); Parainfluenza Virus 3 Not Detected (Not Detect); Parainfluenza Virus 4 Not Detected (Not Detect); Respiratory Syncytial Virus Not Detected (Not Detect); SARS-CoV-2 Not Detected (Not Detect)
[2019-11-01] MEDS ORDERED: Perflutren Lipid Microsphere 1.3 ML in 0.9 % Sodium Chloride 8.7 ML IVP PRN (01:58)
[2019-11-01] MEDS ORDERED: Nitroglycerin 0.4 MG TAB.SUBL SL PRN (01:58)
[2019-11-01] MEDS ORDERED: Naloxone 0.4 MG/ML INJ IVP PRN (02:03)
[2019-11-01] MEDS ORDERED: Acetaminophen 325 MG TABLET PO PRN (02:03)
[2019-11-01 04:09] LABS: Hematocrit 44.6 % (37.5-50.1); Hemoglobin 15.1 g/dL (12.9-16.9); Mean Corpuscular HGB Conc 33.9 g/dL (31.6-35.5); Mean Corpuscular Hemoglobin 30.9 pg (28.0-33.3); Mean Corpuscular Volume 91.4 fL (83.0-100.0); Mean Platelet Volume 10.4 fL (9.4-12.4); Platelet Count 199 K/mcL (140-400); Red Blood Count 4.88 M/mcL (4.19-5.50); Red Cell Distribution Width 12.7 % (11.5-14.5); White Blood Count 8.9 K/mcL (4.3-11.1)
[2019-11-01 04:27] LABS: BUN/Creatinine Ratio 11 (6-26); Blood Urea Nitrogen 8 mg/dL (6-20); Calcium 8.9 mg/dL (8.6-10.3); Carbon Dioxide 23 mEq/L (23-29); Chloride 108 mEq/L (98-107); Chol/HDL Ratio 8.3 (0-4.9); Cholesterol 258 mg/dL (< 200); Glucose 109 mg/dL (70-105); HDL Cholesterol 31 mg/dL (40-59); LDL Cholesterol,Calculated 208 mg/dL (< 100); Osmolality,Calculated 289 (280-300); Phosphorous 2.7 mg/dL (2.7-4.5); Potassium 3.6 mEq/L (3.5-5.1); Sodium 140 mEq/L (136-145); Triglycerides 93 mg/dL (< 150); eGFR For African Americans > 60 (> 60); eGFR For Non-African Americans > 60 (> 60)
[2019-11-01] MEDS ORDERED: Prochlorperazine 10 MG/2 ML VIAL IVP PRN (04:31)
[2019-11-01 04:40] LABS: Thyroid Stimulating Hormone 2.955 mcIU/mL (0.340-5.600)
[2019-11-01] MEDS: *HR* Heparin 5,000 UNIT/ML VIAL SQ SCH ×2 (05:53→15:00)
[2019-11-01] MEDS ORDERED: Regadenoson 0.4 MG/5 ML SYRINGE IVP ONE (06:10)
[2019-11-01] MEDS ORDERED: Aspirin Enteric Coated 81 MG Tablet PO SCH (09:00)
[2019-11-01 14:23] VITALS: BP 171/85
[2019-11-01] MEDS ORDERED: Methadone Oral Concentrate 50 MG/5 ML UDC PO SCH (16:45)
== END 2019-11-01 18:08 | disposition home or self-care (01) ==
LOC: 3ANU 21:11 → EMEROOARM 21:11 → SUATTDRO 11-01 00:34 → 3ANU 11-01 00:40
PROVIDERS: ADMIT Internal Medicine; ATTEND Internal Medicine